=== PATIENT | male | born 1980 | race Caucasian/White ===

== ENCOUNTER 2016-12-12 23:05 | Emergency (ER) | payer BC ==
[2016-12-12] MEDS ORDERED: Diprivan 20 ML ONE (23:30)
[2016-12-12] MEDS ORDERED: Fentanyl 100 MCG/2 ML VIAL ONE (23:30)
--- NOTE | 2016-12-13 09:01 | RAD ---
TWO VIEWS OF THE LEFT SHOULDER: COMPARISON: None. HISTORY: Left shoulder injury with dislocation. Post reduction radiograph. FINDINGS: Two views of the left shoulder who no evidence of acute fracture or dislocation. No degenerative ch anges are seen. The visualized left thorax is unremarkable. IMPRESSION: No evidence of fracture or dislocation on the current exam. POS: [facility]
== END 2016-12-13 00:23 | disposition home or self-care (01) ==
LOC: ERS 23:05
DX: S43.005A Unspecified dislocation of left shoulder joint, initial encounter (principal); X58.XXXA Exposure to other specified factors, initial encounter; Y93.64 Activity, baseball
CPT/HCPCS: 23650; 96374; 99152; 99153; J2704; J3010

== ENCOUNTER 2017-07-05 17:07 | Emergency (ER) | payer BC ==
[2017-07-05] MEDS ORDERED: Ketorolac Tromethamine 30 MG/ML VIAL ONE (19:10)
[2017-07-05 19:37] LABS: #Basophils 0.1 thou/uL (0.0-0.2); #Lymphocytes 0.8 thou/uL (1.20-3.40); #Monocytes 1.2 thou/uL (0.11-0.59); %Basophils 0.5 % (0.0-1.0); %Eosinophils 0.1 % (0.0-10.0); %Lymphocytes 7.4 % (21.0-51.0); Hemoglobin 17.3 g/dL (14.0-18.0); Mean Corpuscular HGB CONC 33.9 g/dL (32.0-36.0); Mean Corpuscular Hemoglobin 31.2 pg (27.0-31.0); Platelet Count 235 thou/uL (130-400); RBC Distribution Width 11.8 % (11.5-14.5); Red Blood Cell (RBC) Count 5.54 mill/uL (4.70-6.10); White Blood Cell (WBC) Count 11.1 thou/uL (4.8-10.8)
[2017-07-05 20:01] LABS: ALT (SGPT) 27 U/L (8-55); AST (SGOT) 21 U/L (5-34); Albumin 4.5 g/dL (3.5-5.0); Alkaline Phosphatase 96 U/L (40-150); Anion Gap 14 mmol/L (10-20); BUN (Urea Nitrogen) 11 mg/dL (8.9-20.6); Bilirubin, Total 2.2 mg/dL (0.2-1.2); Calc. Creatinine Clearance 0 mL/min (70-130); Calcium 9.7 mg/dL (7.8-10.44); Carbon Dioxide 27 mmol/L (22-29); Chloride 101 mmol/L (98-107); Estimated GFR-MDRD 77; Globulin 2.9 g/dL (2.4-3.5); Glucose 104 mg/dL (70-105); Potassium 3.9 mmol/L (3.5-5.1); Protein, Total 7.4 g/dL (6.0-8.3); Sodium 138 mmol/L (136-145)
--- NOTE | 2017-07-05 20:12 | RAD ---
TWO VIEWS OF THE CHEST 07/05/17 COMPARISON: 03/07/09 HISTORY: Fever. FINDINGS: No pneumothorax, pleural fluid, focal consolidation, or alveolar edema. Heart and mediastinal contour s are unremarkable. IMPRESSION: No acute findings. POS: [facility]
[2017-07-05] MEDS ORDERED: Acetaminophen 500 MG TAB ONE (21:25)
== END 2017-07-05 22:05 | disposition home or self-care (01) ==
LOC: ERS 17:07
DX: B34.9 Viral infection, unspecified (principal)
CPT/HCPCS: 71046; 80053; 83605; 85025; 87040; 87804; 96361; 96374; J1885

== ENCOUNTER 2023-07-03 23:14 | Emergency (ER) | payer BC ==
[2023-07-04] MEDS ORDERED: Ketorolac Tromethamine 30 MG (1 mL) VIAL ONE (00:14)
[2023-07-04] MEDS ORDERED: KETAMINE 100 MG/ML (5ML VIAL) ONE (00:15)
[2023-07-04] MEDS ORDERED: LORazepam 2 MG/ML SYR.(CARPUJECT) ONE (01:02)
== END 2023-07-04 03:06 | disposition home or self-care (01) ==
LOC: ERS 23:14
DX: S43.005A Unspecified dislocation of left shoulder joint, initial encounter (principal); X50.1XXA Overexertion from prolonged static or awkward postures, initial encounter
CPT/HCPCS: 23650; 94760; 96374; 96375; J1885; J2060